=== PATIENT | male | born 1990 | race African-American/Black ===

== ENCOUNTER 2017-10-20 17:23 | Emergency (ER) | payer MEDICAID, OTHER ==
[~2017-10-20] VITALS: Ht 190.5 cm; Wt 81.0 kg
[~2017-10-20 17:23] MED LIST: FAMO-135 PO
[2017-10-20 21:44] VITALS: BP 117/84
[2017-10-20] MEDS ORDERED: IBUPROFEN 600MG TABLET PO ONE (21:45)
== END 2017-10-20 21:47 | disposition home or self-care (01) ==
LOC: ER 18:49
DX: S93.491A Sprain of other ligament of right ankle, initial encounter (principal); S90.112A Contusion of left great toe without damage to nail, initial encounter; W17.2XXA Fall into hole, initial encounter; W22.8XXA Striking against or struck by other objects, initial encounter; Y93.89 Activity, other specified; Y92.89 Other specified places as the place of occurrence of the external cause
CPT/HCPCS: 73562; 73610; 73630; 99284

== ENCOUNTER 2024-09-08 15:19 | Emergency (ER) | payer BC, MEDICAID ==
[~2024-09-08] VITALS: Ht 182.9 cm; Wt 89.0 kg
[2024-09-08 15:24] VITALS: TEMP 36.6; O2SAT 100
[2024-09-08 16:44] VITALS: BP 133/80; PULSE 90; RESP 15
[2024-09-08] MEDS: IBUPROFEN 400MG TABLET PO ONE (16:44)
== END 2024-09-08 17:10 | disposition left against medical advice (07) ==
LOC: ER 15:19
DX: S93.401A Sprain of unspecified ligament of right ankle, initial encounter (principal); M25.571 Pain in right ankle and joints of right foot; Z79.899 Other long term (current) drug therapy; W01.0XXA Fall on same level from slipping, tripping and stumbling without subsequent striking against object, initial encounter; Y93.89 Activity, other specified; Y92.89 Other specified places as the place of occurrence of the external cause; Y99.8 Other external cause status
CPT/HCPCS: 73610; 73630; 99284; A4606

== ENCOUNTER 2025-02-17 20:48 | Emergency (ER) | payer BC, MEDICAID ==
[~2025-02-17] VITALS: Ht 182.9 cm; Wt 88.0 kg
[2025-02-17 21:03] VITALS: O2SAT 99
[2025-02-17] MEDS: FAMOTIDINE 20MG TABLET PO ONE (21:27)
[2025-02-17] MEDS: MAGNESIUM/ALUMINUM HYDROXIDE/SIMETHICONE 30ML UDC PO ONE (21:27)
[2025-02-17] MEDS: ONDANSETRON 4MG ODT PO ONE (21:27)
[2025-02-17 21:35] LABS: BASOPHILS % 1.2 % (0.0-2.0); EOSINOPHILS % 2.0 % (0.0-5.0); HEMATOCRIT. 39.3 % (42.0-52.0); HEMOGLOBIN. 13.1 g/dL (14.0-18.0); LYMPHOCYTES % 33.4 % (20.0-50.0); MEAN PLATELET VOLUME 9.1 fl (7.4-10.4); MONOCYTES % 10.8 % (2.0-8.0); NEUTROPHILS % 52.6 % (40.0-76.0); PLATELET 180 x1000/uL (130-400); RED BLOOD CELL COUNT 4.40 mill/uL (4.7-6.1); RED CELL DISTRIBUTION WIDTH 12.1 % (11.6-14.6)
[2025-02-17 21:48] LABS: CREATININE 1.1 mg/dL (0.6-1.3); UREA NITROGEN BLOOD 10 mg/dL (9-23)
[2025-02-17 21:49] LABS: ETHANOL BLOOD 220 mg/dL (<10)
[2025-02-17 21:50] LABS: ASPARTATE AMINOTRANSFERASE 143 IU/L (<34); BILIRUBIN DIRECT 0.5 mg/dL (<=3.0)
[2025-02-17 21:51] LABS: BILIRUBIN TOTAL 1.5 mg/dL (0.1-1.0); PROTEIN TOTAL 7.9 g/dL (6.0-8.3)
[2025-02-17 22:04] LABS: *AMPHETAMINES SCREEN URINE NEGATIVE (NEGATIVE); *BARBITURATES SCREEN URINE NEGATIVE (NEGATIVE); *BENZODIAZEPINES SCREEN URINE NEGATIVE (NEGATIVE); *COCAINE SCREEN URINE PRESUMPTIVE POSITIVE (NEGATIVE); CANNABINOID URINE SCREEN PRESUMPTIVE POSITIVE (NEGATIVE); ECSTASY MDMA SCREEN URINE NEGATIVE (NEGATIVE); METHADONE URINE SCREEN NEGATIVE (NEGATIVE); OPIATES URINE SCREEN NEGATIVE (NEGATIVE); PHENCYCLIDINE URINE SCREEN NEGATIVE (NEGATIVE)
[2025-02-17] MEDS: KETOROLAC 30MG/ML VIAL IM ONE (22:40)
[2025-02-17] MEDS ORDERED: CEPH500C2 MT (23:32)
[2025-02-17] MEDS ORDERED: PHEN-815 MT (23:32)
[2025-02-18 00:05] VITALS: BP 113/68; PULSE 79; RESP 16; TEMP 36.7; O2SAT 97
[2025-02-18 00:14] LABS: CLARITY URINE CLEAR (CLEAR); COLOR URINE YELLOW (YELLOW); GLUCOSE URINE NEGATIVE (NEGATIVE); KETONES URINE 1+ (NEGATIVE); LEUKOCYTE ESTERASE URINE NEGATIVE (NEGATIVE); NITRITE URINE NEGATIVE (NEGATIVE); OCCULT BLOOD URINE NEGATIVE (NEGATIVE); PH URINE 5.5 (4.5-8.0); PROTEIN URINE NEGATIVE (NEGATIVE); SPECIFIC GRAVITY URINE 1.014 (1.005-1.030); UROBILINOGEN URINE 1.0 E.U./dL (0.2-1.0)
== END 2025-02-18 00:25 | disposition home or self-care (01) ==
LOC: ER 20:48
DX: N30.00 Acute cystitis without hematuria (principal); F10.129 Alcohol abuse with intoxication, unspecified; I10 Essential (primary) hypertension; Z79.899 Other long term (current) drug therapy; Y90.7 Blood alcohol level of 200-239 mg/100 ml
CPT/HCPCS: 80076; 80305; 80048; 81003; 80320; 83690; 85025; 36415; 74176; 96372; 99285; Q0162; J1885; G0480